=== PATIENT | female | born 1935 | race Caucasian/White ===

== ENCOUNTER → 2018-03-23 | Outpatient (CLI) | payer MEDICARE, BC ==
--- NOTE | 2018-03-23 10:38 | RADRPT ---
EXAM DATE/TIME: 03/23/2018 00:00 [place] COMPARISON: No previous studies available for comparison. INDICATIONS : Dysphagia. FLUORO TIME: 1.3 minutes IMAGE COUNT: 0 CONTRAST: Dose as prescribed by speech pathologist. MEDICAL HISTORY : problems swallowing solids for over 2 years SURGICAL HISTORY : None. ENCOUNTER: Initial ACUITY: >1 year PAIN SCORE: 0/10 LOCATION: Bilateral neck FINDINGS: A modified barium swallow was performed with speech pathology. Patient was given a variety of liquids to swallow. For a full detailed report, see report by the speech pathologist. CONCLUSION: Normal examination. Thomas Crespo MD on March 23, 2018 at 10:35 Board Certified Radiologist. This report was verified electronically.
== END ==
LOC: HRAD 09:33
PROVIDERS: ATTEND Specialist
DX: R13.10 Dysphagia, unspecified (principal)
CPT/HCPCS: 74230; 92611; G8996; G8997; G8998